=== PATIENT | female | born 1955 | race Caucasian/White ===

== ENCOUNTER 2024-08-04 10:53 | Emergency (ER) | payer MEDICARE, SELFPAY ==
[2024-08-04 11:13] VITALS: BP 153/85; PULSE 53; RESP 16; TEMP 36.8; O2SAT 98; BMI 26.5
--- NOTE | 2024-08-04 11:44 | CT_ITS ---
WS: [id number] CT LUMBAR SPINE, noncontrast. HISTORY: trauma TECHNIQUE: Contiguous 2.0 mm axial imaging are performed. Sagittal and coronal reformats are submitted and reviewed. All CT scans at [facility] use at least one of these dose optimization techniques: automated exposure control; mA and/or kV adjustment per patient size (includes targeted exams where dose is matched to clinical indication); or iterative reconstruction. IV contrast: None DLP: 686.91 mGy.cm COMPARISON: None available. Mild increase in the lumbar lordosis. Advanced degenerative disc disease at L4- 5. There is bone upon bone with vacuum disc phenomenon and large osteophytes. No acute fracture. Bilateral facet joint arthropathy. 5 lumbar type vertebral bodies. L1-2: Normal. L2-3: Normal. L3-4: Central broad-based disc protrusion with mild encroachment upon the subarticular recesses, RIGHT greater than LEFT. Ligamentum flavum and facet arthritis. Mild central stenosis. L4-5: Osteophytic ridging encroaching upon the ventral thecal sac, subarticular recesses and foramina. Marked facet arthritis. Central, subarticular recess and foraminal stenosis. L5-S1: Small rudimentary disc. Mild scattered plaque within the visualized aorta. CT/CT lumbar spine wo con* [id number] IMPRESSION: 1. No lumbar spine fracture. 2. Advanced degenerative disc disease at L4-5. Rudimentary L5-S1 disc. 3. Central, subarticular recess and foraminal stenosis at L4-5.
--- NOTE | 2024-08-04 11:44 | CT_ITS ---
WS: [id number] CT CERVICAL SPINE HISTORY: trauma TECHNIQUE: Contiguous 2.0 mm axial imaging performed through the entire cervical spine. Sagittal and coronal reformats also performed. All CT scans at [facility] use at least one of these dose optimization techniques: automated exposure control; mA and/or kV adjustment per patient size (includes targeted exams where dose is matched to clinical indication); or iterative reconstruction. DLP: 1350.41 mGy.cm COMPARISON: None available. C7 anterolisthesis by 2 mm. Moderate degenerative disc space narrowing at C5-6. No acute fractures. Facet joints are normally aligned. Craniocervical junction, C1 and C2 are normally aligned. C2-C3: Osteophytic ridging and facet arthritis. C3-C4: Bilateral mild foraminal stenosis, facet arthritis and osteophytic ridging. C4-C5: Osteophytic ridging with facet arthritis. Mild RIGHT foraminal stenosis. C5-C6: Moderate osteophytic ridging and facet arthritis. Moderate bilateral foraminal stenosis. C6-C7: Osteophytic ridging with mild RIGHT and moderate LEFT foraminal stenosis and facet arthritis. C7-T1: Normal. Soft tissues are normal. Lung apices are clear. CT/CT cervical spin wo con* [id number] IMPRESSION: 1. No acute cervical spine fracture. 2. Multilevel facet joint arthritis and foraminal stenoses as above.
--- NOTE | 2024-08-04 11:44 | CT_ITS ---
WS: [id number] CT THORACIC SPINE HISTORY: trauma TECHNIQUE: Contiguous 2.5 mm axial images are reviewed to thoracic spine. Images are reformatted in sagittal and coronal planes. All CT scans at [facility] use at least one of these dose optimization techniques: automated exposure control; mA and/or kV adjustment per patient size (includes targeted exams where dose is matched to clinical indication); or iterative reconstruction. DLP: 686.91 mGy.cm COMPARISON: None available. Mild increase in thoracic kyphosis. Very mild anterior wedging of T3. Very slight bowing of the posterior superior endplate of T3. No acute fracture line is identified. No adjacent hematoma. Age-indeterminate fracture. Additional mild disc space narrowing throughout the thoracic spine with endplate osteophytosis. No central or foraminal stenosis. No disc protrusions identified. Paraspinal soft tissues are normal. No pulmonary contusion. Bilateral lower lobe mild bronchiectasis. CT/CT thoracic spin wo con* [id number] IMPRESSION: 1. Age-indeterminate but likely chronic minimal compression deformity of T3. N o retropulsion of the vertebral body. No paravertebral hematoma. Recommend tamar elate with point tenderness. 2. Mild increase in thoracic kyphosis.
--- NOTE | 2024-08-04 11:46 | CT_ITS ---
WS: [id number] CT HEAD NONCONTRAST HISTORY: trauma TECHNIQUE: Contiguous axial imaging performed through the brain. Bone and soft tissue windows. Sagittal and coronal reformats reviewed. All CT scans at [facility] use at least one of these dose optimization techniques: automated exposure control; mA and/or kV adjustment per patient size (includes targeted exams where dose is matched to clinical indication); or iterative reconstruction. DLP: 1350.41 mGy.cm COMPARISON: None available. No acute intracranial hemorrhage, midline shift or mass effect. Mild small vessel ischemic disease. Tiny lacunar infarct along the LEFT external capsule near the caudate. Ventricles: Normal size with no hydrocephalus. No inferior displacement the cerebellar tonsils. Paranasal sinuses: Frothy secretions in the RIGHT maxillary sinus. Mastoid air cells: Well pneumatized. Calvarium and scalp: Skull is intact with no soft tissue edema or swelling. CT/CT head wo con* [id number] IMPRESSION: 1. No acute intracranial hemorrhage or edema. 2. No skull fracture identified.
--- NOTE | 2024-08-04 11:53 | W.ED.FALL ---
HPI - Fall General: Chief Complaint: Fall Stated Complaint: Fell on stairs Time Seen by Provider: 08/04/24 11:43 History of Present Illness: 68-year-old female presents emergency room after a fall on her stairs at home. She fell around 850 this morning presented around 2 hours later. She was able to get up with assistance she has been able to ambulate she is complaining of pain in her lower and mid back. She did strike her head does not believe she had any loss consciousness. She reported some pain on inhalation to the nurse however I asked her about chest pain she denied any I can palpate along her ribs without any significant discomfort. No hemoptysis. She denies any other injuries no pain radiating to her legs Associated symptoms-after fall: Denies abdominal pain, chest pain or neck pain Related Data Home Medications ?Medication ?Instructions ?Recorded ?Confirmed cholecalciferol (vitamin D3) 125 125 mcg PO DAILY 07/18/24 07/18/24 mcg (5,000 unit) capsule hydroxyzine HCl 10 mg tablet 10 mg PO QID PRN 07/18/24 07/18/24 magnesium 250 mg tablet 500 mg PO DAILY 07/18/24 07/18/24 melatonin 10 mg capsule 10 mg PO DAILY PRN 07/18/24 07/18/24 vitamin K2 100 mcg capsule 100 mcg PO DAILY 07/18/24 07/18/24 Previous Rx's ?Medication ?Instructions ?Recorded levothyroxine 88 mcg tablet 88 mcg PO DAILY #90 tabs 07/18/24 (Synthroid) lisinopril 10 mg tablet 10 mg PO DAILY #90 tabs 07/18/24 diclofenac sodium 75 mg 75 mg PO Q12H PRN pain #20 tabs 08/04/24 tablet,delayed release hydrocodone 5 mg-acetaminophen 325 1 tab PO Q6H PRN pain #6 tabs 08/04/24 mg tablet tizanidine 4 mg tablet 4 mg PO Q6H PRN muscle spasticity 08/04/24 #20 tabs Allergies Allergy/AdvReac Type Severity Reaction Status Date / Time Penicillins Allergy hives Verified 07/18/24 11:12 Review of Systems Const: Denies: fever(s) or chills Card: Denies: chest pain Resp: Denies: dyspnea GI: Denies: abdominal pain : Denies: dysuria, urinary frequency or urinary urgency Musc: Denies: neck pain or back pain Skin/Breast: Denies: rash PFSH ED PFSH: Medical History Low vitamin D level Esophageal dysphagia has had esophageal dysphagia Cancer of the skin, basal cell Anxiety Osteopenia DEXA 10.16.23 HTN (hypertension) with goal to be determined Hypothyroidism (acquired) Surgical History History of rhinoplasty Hx of colonoscopy 8.1.16 History of tonsillectomy H/O basal cell carcinoma excision Family History Father Lung cancer Kidney stones Mother Atrial fibrillation Osteoporosis Brother Heart disease History of heart attack Social History Smoking and tobacco/nicotine status: never used tobacco/nicotine Alcohol intake: current Alcohol intake frequency: holidays/special occasions only Alcohol type: wine Substance/Drug Use: never Household members: other Details: step father--she is caregiver for him Marital status: Number of children: 1 Highest education level completed: Bachelor's Degree Current occupational status: retired Previous occupational history: RN Physical Exam Const: GENERAL APPEARANCE: cooperative ORIENTATION/CONSCIOUSNESS: Yes awake, Yes oriented to person, Yes oriented to place and Yes oriented to time HENMT: COMMON NORMALS: normocephalic, atraumatic and hearing grossly normal bilaterally HEAD & SCALP: normocephalic and atraumatic Resp: COMMON NORMALS: normal respiratory effort, No retractions, No use of accessory muscles and clear to auscultation bilaterally AUSCULTATION: clear to auscultation bilaterally Cardio: COMMON NORMALS: regular rate, regular rhythm and No murmurs present (Cardio) RATE: regular rate RHYTHM: regular rhythm GI: COMMON NORMALS: Soft to palpation and No hepatosplenomegaly present AUSCULTATION: Yes normoactive bowel sounds PALPATION: Yes Soft to palpation, No Tenderness to palpation present (GI), No Guarding due to palpation present (GI) and Yes No hepatosplenomegaly present Extremity: COMMON NORMALS: normal to inspection, capillary refill normal, no clubbing, cyanosis or edema, no calf tenderness and no pedal edema Neuro: SENSORIUM/ORIENTATION: Yes oriented to person, Yes oriented to place and Yes oriented to time Skin: COMMON NORMALS: no rashes or lesions noted GENERAL SKIN EXAM: no rashes or lesions noted Course Vital Signs: Vital signs: Vital Signs Temperature 98.3 F 08/04/24 11:13 Pulse Rate 65 08/04/24 13:52 Respiratory Rate 16 08/04/24 11:13 Blood Pressure 160/80 08/04/24 13:52 Pulse Oximetry 97 08/04/24 13:52 Oxygen Delivery Me thod Room Air 08/04/24 12:37 MDM - Fall Medical Decision Making No acute fractures on imaging CT head negative discharge patient home with tizanidine hydrocodone to use as needed diclofenac as needed and have her follow-up with primary care if not improving. Medical Records I reviewed the patient's medical records. Lab Data I reviewed the patient's lab results. Radiology Impressions Cervical Spine CT 08/04/24 11:44 IMPRESSION: 1. No acute cervical spine fracture. 2. Multilevel facet joint arthritis and foraminal stenoses as above. Lumbar Spine CT 08/04/24 11:44 IMPRESSION: 1. No lumbar spine fracture. 2. Advanced degenerative disc disease at L4-5. Rudimentary L5-S1 disc. 3. Central, subarticular recess and foraminal stenosis at L4-5. Thoracic Spine CT 08/04/24 11:44 IMPRESSION: 1. Age-indeterminate but likely chronic minimal compression deformity of T3. No retropulsion of the vertebral body. No paravertebral hematoma. Recommend correlate with point tenderness. 2. Mild increase in thoracic kyphosis. Head CT 08/04/24 11:46 IMPRESSION: 1. No acute intracranial hemorrhage or edema. 2. No skull fracture identified. All radiology interpretation(s) finalized by discharge Discharge Plan Discharge Patient Disposition: Home Clinical Impression: Fall (on) (from) other stairs and steps, initial encounter, Low back pain at multiple sites Condition: Stable Prescriptions: New tizanidine 4 mg tablet 4 mg PO Q6H PRN (Reason: muscle spasticity) Qty: 20 0RF Rx Instructions: do not exceed 3 doses per 24 hrs hydrocodone-acetaminophen 5-325 mg tablet 1 tab PO Q6H PRN (Reason: pain) Qty: 6 0RF diclofenac sodium 75 mg tablet,delayed release (/EC) 75 mg PO Q12H PRN (Reason: pain) Qty: 20 0RF No Action cholecalciferol (vitamin D3) 125 mcg (5,000 unit) capsule 125 mcg PO DAILY vitamin K2 100 mcg capsule 100 mcg PO DAILY Rx Instructions: Takes 125 mcg. magnesium 250 mg tablet 500 mg PO DAILY melatonin 10 mg capsule 10 mg PO DAILY PRN hydroxyzine HCl 10 mg tablet 10 mg PO QID PRN levothyroxine [Synthroid] 88 mcg tablet 88 mcg PO DAILY Qty: 90 3RF lisinopril 10 mg tablet 10 mg PO DAILY Qty: 90 3RF Discharge Orders: Discharge ED (Routine); Ordered 08/04/24 Ordered By: Anton Rosales Referrals: Mercedes Rizvi MD [Primary Care Provider] - Discharge Diet: Usual diet Discharge Activity: Resume usual activity Patient Instructions: Opioid Safety, Pain Management Activity Restrictions/Additional Instructions: Thank you for choosing [facility] [place] for your healthcare needs today. It is very important that you follow up as instructed or that you return to the Emergency Department should you have concerns or if your condition changes or worsens in any way. You were seen in the emergency room after a fall on the stairs. CT of your head and spine did not show any acute injuries. You will likely be very sore over the next few days due to soft tissue injury from the fall. You are given prescriptions for anti-inflammatories muscle relaxers and hydrocodone to use at night to help with sleep follow-up with your primary care doctor if not improving Print Language: Jordanian Coding Level of Care Code ED Bundle Tier And Labeler for Nancy Santamaria
[2024-08-04] MEDS: ketorolac 30 mg/mL INJ IVP (12:36)
[2024-08-04 12:37] VITALS: BP 176/80; PULSE 57; O2SAT 96
[2024-08-04 13:52] VITALS: BP 160/80; PULSE 65; O2SAT 97
== END 2024-08-04 13:55 | disposition home or self-care (01) ==
PROVIDERS: Emergency Provider Family Medicine; PCP Family Medicine
DX: M54.50 Low back pain, unspecified (principal); W10.9XXA Fall (on) (from) unspecified stairs and steps, initial encounter; I10 Essential (primary) hypertension; Z85.828 Personal history of other malignant neoplasm of skin; M54.2 Cervicalgia
CPT/HCPCS: 70450; 72125; 72128; 72131; 96374; 99285; J1885

== ENCOUNTER → 2024-08-18 12:45 | Outpatient (BNVA) | payer MEDICARE, SELFPAY | PROVIDERS: PCP Family Medicine; Visit Provider Nurse Practitioner Family | DX: L82.1 Other seborrheic keratosis (principal); L57.8 Other skin changes due to chronic exposure to nonionizing radiation; L81.4 Other melanin hyperpigmentation; D18.01 Hemangioma of skin and subcutaneous tissue; Z08 Encounter for follow-up examination after completed treatment for malignant neoplasm; Z85.828 Personal history of other malignant neoplasm of skin; Z80.8 Family history of malignant neoplasm of other organs or systems; L57.0 Actinic keratosis | CPT/HCPCS: 17000; 99203 ==

== ENCOUNTER → 2025-02-06 10:58 | Outpatient (BNVA) | payer MEDICARE, SELFPAY | PROVIDERS: PCP Family Medicine; Visit Provider Family Medicine | DX: E55.9 Vitamin D deficiency, unspecified (principal); R13.19 Other dysphagia; Z11.59 Encounter for screening for other viral diseases; R79.89 Other specified abnormal findings of blood chemistry; I10 Essential (primary) hypertension; E03.9 Hypothyroidism, unspecified; M54.9 Dorsalgia, unspecified; G89.29 Other chronic pain | CPT/HCPCS: 80053; 80061; 82306; 84439; 84443; 85025; 86803 ==